=== PATIENT | female | born 1950 | race Asian ===

== ENCOUNTER 2022-11-23 08:25 | Day surgery (SDC) | payer OTHER ==
[2022-11-18 16:26] VITALS: BMI 29.7
[~2022-11-23 08:25] MED LIST: ONDANSETRON 4 MG/2 ML VIAL IVPUSH PRN; oxyCODONE HCL 5 MG TABLET PO PRN
[2022-11-23] MEDS ORDERED: CEFAZOLIN 2 GM in DEXTROSE 5%-WATER - 50 ML IVPB ONE (09:00)
[2022-11-23] MEDS ORDERED: BUPIVACAINE HCL/PF 0.5% (5 MG/ML) 30 ML VIAL IJ ONE (09:24)
[2022-11-23] MEDS ORDERED: ACETAMINOPHEN INJECTION 100 ML IVPB ONE (09:24)
[2022-11-23] MEDS ORDERED: BUPIVACAINE LIPOSOME/PF (EXPAREL) 266 MG/20 ML VIAL ONE (09:24)
[2022-11-23] MEDS ORDERED: MIDAZOLAM HCL 2 MG/2 ML SINGLE DOSE VIAL ONE (09:26)
[2022-11-23] MEDS ORDERED: TRANEXAMIC ACID 1000 MG/10 ML VIAL IVPUSH ONE (10:00)
[2022-11-23] MEDS ORDERED: VANCOMYCIN 1,000 MG VIAL (RESTRICTED TO ID ONLY) ONE (10:38)
[2022-11-23] MEDS ORDERED: PROPOFOL 20 ML ONE ×3 (11:16→13:32)
[2022-11-23] MEDS ORDERED: BUPIVICAINE 0.25%/MORPH PF/KETOROLAC - 51ML DISP.SYRINGE IA ONE ×2 (12:42→13:39)
[2022-11-23] MEDS ORDERED: TRANEXAMIC ACID 1000 MG/10 ML VIAL ONE (13:27)
[2022-11-23] MEDS ORDERED: VANCOMYCIN 1,000 MG VIAL (RESTRICTED TO ID ONLY) IVPB ONE (13:31)
[2022-11-23] MEDS ORDERED: MAG HYDROX/AL HYDROX/SIMETH 30 ML UNIT-DOSE CUP PO PRN (14:37)
[2022-11-23] MEDS ORDERED: MAGNESIUM HYDROX 2400MG/30ML ORAL SUSPENSION 30 ML CUP PO PRN (14:37)
[2022-11-23] MEDS ORDERED: ONDANSETRON 4 MG/2 ML VIAL IVPUSH PRN (14:37)
[2022-11-23] MEDS ORDERED: oxyCODONE HCL 5 MG TABLET PO PRN (14:42)
[2022-11-23] MEDS: LACTATED RINGERS SOLUTION 1,000 ML IV SCH (18:10)
[2022-11-23] MEDS: CEFAZOLIN SODIUM 2 GM in DEXTROSE 5%-WATER 100 ML IVPB SCH (18:10)
[2022-11-23] MEDS: ACETAMINOPHEN 1000 MG/100 ML BAG IVPB SCH (21:20)
[2022-11-23] MEDS: SENNOSIDES/DOCUSATE COMBO (SENNA PLUS) TABLET (UD) PO SCH (21:21)
[2022-11-23] MEDS ORDERED: ATORVASTATIN CA 10 MG TABLET (FP) PO SCH (22:00)
[2022-11-24 01:42] VITALS: RESP 18
[2022-11-24] MEDS: CEFAZOLIN SODIUM 2 GM in DEXTROSE 5%-WATER 100 ML IVPB SCH ×2 (02:16→09:57)
[2022-11-24] MEDS: ACETAMINOPHEN 1000 MG/100 ML BAG IVPB SCH (04:33)
[2022-11-24 08:44] LABS: HEMATOCRIT 35.3 % (32.4-45.2); HEMOGLOBIN 11.4 G/dL (10.7-15.3); MCH 28.6 pg (25.7-33.7); MCHC 32.3 g/dl (32.0-36.0); MEAN CELL VOLUME 88.4 fl (80-96); MEAN PLT VOLUME 9.6 fl (7.5-11.1); PLATELET COUNT 223.9 10^3/uL (134-434); RBC 3.99 10^6/uL (3.60-5.2); RDW 14.7 % (11.6-15.6); WHITE BLOOD COUNT 8.1 10^3/uL (4.0-10.8)
[2022-11-24 09:00] LABS: CALCIUM 9.6 mg/dl (8.5-10.1); CREATININE 0.8 mg/dl (0.6-1.3); POTASSIUM 4.2 mmol/L (3.5-5.1)
[2022-11-24] MEDS ORDERED: DEXTROSE 5%-WATER 100 ML IVPB ONE (09:49)
[2022-11-24] MEDS: SENNOSIDES/DOCUSATE COMBO (SENNA PLUS) TABLET (UD) PO SCH (09:53)
[2022-11-24] MEDS: oxyCODONE HCL 5 MG TABLET PO PRN ×2 (09:54→15:27)
[2022-11-24] MEDS: LACTATED RINGERS SOLUTION 1,000 ML IV SCH (09:56)
[2022-11-24] MEDS ORDERED: MULTIVITAMINS (DAILY MVI) TABLET (FP) PO SCH (10:00)
[2022-11-24] MEDS ORDERED: PANTOPRAZOLE 40 MG TABLET PO SCH (10:00)
[2022-11-24] MEDS ORDERED: ASPIRIN 81 MG CHEWABLE TABLETS PO SCH (10:00)
[2022-11-24] MEDS ORDERED: amLODIPine BESYLATE 5 MG TABLET (FP) PO SCH ×2 (10:00)
[2022-11-24] MEDS ORDERED: ACETAMINOPHEN 500 MG TABLET (FP) PO SCH (11:00)
[2022-11-24 14:39] VITALS: BP 116/61; PULSE 93; TEMP 98.8
== END 2022-11-24 16:57 | disposition home or self-care (01) ==
LOC: FASUSAT 08:25 → FM/S 15:45 → FASUSAT 11-24 16:57
PROVIDERS: ATTEND Internal Medicine
PROC: 0SRB0JA Replacement of Left Hip Joint with Synthetic Substitute, Uncemented, Open Approach (ICD-10-PCS; principal; 2022-11-23 11:52)
DX: M16.12 Unilateral primary osteoarthritis, left hip (principal)
CPT/HCPCS: 20985; 27130; S2900; 36415; 73502-TC-LT-FY; 80048; 85027; 88305-TC; 88311-TC; 94760; 97010-GP; 97116-GP; 97162-GP; C1776; C1889; L8600